=== PATIENT | female | born 1960 | race Caucasian/White ===

== ENCOUNTER 2022-02-22 17:07 | Emergency (ER) | payer MEDICARE, SELFPAY ==
[2022-02-22 17:07] VITALS: BP 182/90; PULSE 75; RESP 16; TEMP 36.8; O2SAT 95; BMI 33.5
--- NOTE | 2022-02-22 17:35 | RAD_ITS ---
STUDY: X-RAY - RIGHT SHOULDER REASON FOR EXAM: Female, 61 years old. fall TECHNIQUE: 4 view(s) of the shoulder. COMPARISON: None. FINDINGS: Narrowed glenohumeral articulation. Normal acromioclavicular joint. Normal acromion. Normal humeral head and visualized proximal humerus. The soft tissue structures are unremarkable. Normal visualized pulmonary apex. RAD/Shoulder min 2 Views IMPRESSION: Degenerative changes. No acute fracture or dislocation. Electronically Signed: Ajay Herbert MD at 19:25 EDT ,
--- NOTE | 2022-02-22 17:38 | EDS_ITS ---
HPI <PARTH Arellano - Last Filed: 02/22/22 19:28> History of Present Illness Chief Complaint: Fall Narrative Narrative: 61-year-old female with history of lupus, hypertension, lipidemia, diabetes, seizures presents to the emergency department after a fall getting out of vehicle. Patient states that she tripped on gravel, falling backwards hitting her head and neck. Patient is also complaining of left knee pain as well as bilateral shoulder pain. Per her , she did cry out however he did state that she did get dazed, however she remained alert. Patient complains of headache, neck pain as well as left knee pain, bilateral shoulder pain. Tiffany ent denies any other injury. Denies any loss of consciousness, denies any blood thinners. PFSH <PARTH Arellano - Last Filed: 02/22/22 19:28> [facility] Medical History (Updated 02/22/22 @ 19:22 by PARTH Arellano) HTN (hypertension) Lupus Metabolic syndrome Seizures Allergy/AdvReac Type Severity Reaction Status Date / Time iodine Allergy Anaphylaxis Verified 02/22/22 17:12 Calcium Channel Blocking AdvReac Other Verified 02/22/22 17:12 Agent Dilt prednisone AdvReac Other Verified 02/22/22 17:12 Surgical History (Updated 02/22/22 @ 17:13 by Sammie White) H/O right knee surgery H/O: hysterectomy History of discectomy Social History Smoking Status: Never smoker ROS <PARTH Arellano - Last Filed: 02/22/22 19:28> ROS ED ROS Narrative Constitutional: Negative for fever, chills, weight loss or gain, weakness Eyes: Negative for vision loss, vision change, double vision ENT: Negative for any hearing changes, ringing in the ears, dizziness, discharge, pain Nose: Negative for any congestion, runny nose, sinus pain, allergies Throat: Negative for any sore throat hoarseness, voice changes, Cardiovascular: Negative for any chest pain, tightness, palpitations, racing heartbeat Respiratory: Negative for any coughs, sputum production, coughing, hemoptysis, shortness of breath, shortness of breath on exertion, Gastrointestinal: Negative for any abdominal pain, nausea, vomiting, diarrhea, constipation, blood in stool, blood in vomit : Negative for any urinary frequency, incontinence, dysuria, retention, blood in urine Muscle skeletal: Negative for any muscle joint pain, stiffness, myalgias, arthralgias, back pain. Positive for neck pain, bilateral shoulder pains, left knee pain Neurological: Negative for any head injury, dizziness, syncope, numbness or tingling. Positive for headache Skin: Negative for any rashes, lumps, itching, abrasions, lacerations Psychiatric: Negative for any depression, anxiety, stress, suicidal ideation, homicidal ideation Hematologic: Negative for any easy bruising, excessive bruising, easy bleeding Allergies: Negative for any eczema, hives, rash EXAM <PARTH Arellano - Last Filed: 02/22/22 19:28> Physical Exam Const Vital Signs: 02/22/22 17:07 Temperature 98.2 F Temperature Source Oral Pulse Rate 75 Respiratory Rate 16 Blood Pressure 182/90 H Blood Pressure Mean 120 Pulse Ox 95 Oxygen Delivery Method Room Air Positive well nourished and well developed General Appearance ED: well developed HEENT HEENT Narrative: Pupils are equal round reactive to light, negative for any hematoma, septal hematoma. Eyes PERRL and EOMs intact bilaterally Neck no lymphadenopathy and supple Chest Wall inspection of chest normal Resp normal respiratory effort and clear to auscultation bilaterally Cardio regular rate and regular rhythm Back/Spine no CVA tenderness Extremity normal to inspection Neuro oriented x3 and CN's II-XII intact bilaterally Sensorium / Orientation: alert Psych mental status grossly normal Skin no rashes or lesions noted <Dr. Carla Henry MD - Last Filed: 02/22/22 19:24> Physical Exam Const Vital Signs: 02/22/22 17:07 Temperature 98.2 F Temperature Source Oral Pulse Rate 75 Respiratory Rate 16 Blood Pressure 182/90 H Blood Pressure Mean 120 Pulse Ox 95 Oxygen Delivery Method Room Air MDM <PARTH Arellano - Last Filed: 02/22/22 19:28> [facility] Narrative Medical decision making narrative: Patient presents to the emergency department after a mechanical fall injuring her head neck, bilateral shoulders and left knee. Patient appears well, patient appears nontoxic, patient alert and x4. Neurologically, the patient had a normal exam, negative for neurological focal deficit. Patient did receive x-rays of her shoulders, left knee, these were read by ER physician, no acute process was seen. Patient did receive a CT scan of the brain and cervical spine, this was negative for any acute intracranial activity, no cervical spine fracture. After the negative cervical spine CT, c- collar was removed. Patient is in pain management has multiple pain medicines at home as well as anti-inflammatories, patient refused to have anything here. Patient was ambulatory to the bathroom, patient feels stable going home and given return precautions. At this time patient is stable for discharge. Lab Data Attestation: I reviewed the patient's lab results. Radiography Diagnostic Testing: Clinical Impression(s) from Imaging Studies Brain CT 02/22/22 18:23 IMPRESSION: Minor periventricular white matter ischemic change. No evidence for acute intracranial hemorrhage Electronically Signed: Ajay Herbert MD at 18:50 EDT , Cervical Spine CT 02/22/22 18:23 IMPRESSION: No evidence for acute fracture or other significant bony pathology. Moderate spondylosis. Electronically Signed: Ajay Herbert MD at 18:53 EDT , Knee X-Ray 02/22/22 18:28 IMPRESSION: Mild degenerative change. No acute fracture or dislocation Electronically Signed: Ajay Herbert MD at 19:12 EDT , <Dr. Carla Henry MD - Last Filed: 02/22/22 19:24> MDM Radiography Diagnostic Testing: Clinical Impression(s) from Imaging Studies Brain CT 02/22/22 18:23 IMPRESSION: Minor periventricular white matter ischemic change. No evidence for acute intracranial hemorrhage Electronically Signed: Ajay Herbert MD at 18:50 EDT , Cervical Spine CT 02/22/22 18:23 IMPRESSION: No evidence for acute fracture or other significant bony pathology. Moderate spondylosis. Electronically Signed: Ajay Herbert MD at 18:53 EDT , Knee X-Ray 02/22/22 18:28 IMPRESSION: Mild degenerative change. No acute fracture or dislocation Electronically Signed: Ajay Herbert MD at 19:12 EDT , Treatment and Re-Evaluation Narrative: I have personally performed a face to face assessment of the patient and have reviewed the STEPHANIE Note. I performed a substantive portion of the visit including all aspects of the following. My palmer findings include: History is Patient presents after trip and fall. She lost her footing on some loose gravel and fell backwards striking her head and neck on some sheet rock. She denies loss of consciousness. She is complaining of pain to her shoulders, neck, head, knee. She is not on anticoagulants. Exam is Patient sitting upright in bed no acute distress. C-collar is in place. Head and neck examination was no obvious external sign of trauma. Mild C-spine tenderness. Heart is regular rate and rhythm. Lung sounds are clear. Abdomen is soft and nontender. Neuro exam reveals no focal deficits. Medical Decison Making CT scan of the head and neck obtained and unremarkable. X-rays of the bilateral shoulders and left knee per my interpretation reveal no acute injury or fracture. Patient declined anything for pain here and will take her chronic pain meds that she receives from pain management. Return instructions are pr ovided. Discharge Plan Triage Chief Complaint: Fall ED Midlevel Provider: Oscar Garcia ED Provider: Carla Henry Dx/Rx/DC Orders Clinical Impression: Fall, Closed head injury, Muscle strain, shoulder region, Knee strain Instructions: Treatment for Mild Traumatic ..., ED Knee Sprain, ED Shoulder Sprain Referrals: KASSY ALLEN [Other] Activity Restrictions/Additional Instructions: Please ensure that you ice, heat, perform gentle stretching. Please rest your eyes next 24 to 48 hours, please have your phone, rest. Return for any worsening symptoms. Print Language: Romansh Disposition Disposition: Home, Self Care
--- NOTE | 2022-02-22 17:40 | RAD_ITS ---
STUDY: X-RAY - LEFT SHOULDER REASON FOR EXAM: Female, 61 years old. FALL TECHNIQUE: 4 view(s) of the shoulder. COMPARISON: None. FINDINGS: Narrowed glenohumeral articulation. Spurring of the acromioclavicular joint. Normal acromion. Normal humeral head and visualized proximal humerus. The soft tissue structures are unremarkable. Normal visualized pulmonary apex. RAD/Shoulder min 2 Views IMPRESSION: Degenerative changes. No acute fracture or dislocation Electronically Signed: Ajay Herbert MD at 19:24 EDT ,
--- NOTE | 2022-02-22 18:23 | CT_ITS ---
STUDY: CT CERVICAL SPINE WITHOUT CONTRAST REASON FOR EXAM: Female, 61 years old. fall RADIATION DOSAGE (If Supplied By Facility): CTDIvol = ( 23.88 ) mGy, DLP = ( 511.36 ) mGycm TECHNIQUE: High resolution transaxial imaging was performed without contrast material. Sagittal and coronal images were reconstructed. Individualized dose optimization techniques were used for this CT. COMPARISON: None FINDINGS: Normal craniovertebral junction. Normal anterior atlantoaxial articulation. Normal odontoid process. Decreased cervical lordosis. Normal vertebral bodies and posterior osseous elements. C2-3: Normal endplates. Normal disc height and morphology. Normal central canal and intervertebral neuroforamina. C3-4: Normal endplates. Normal disc height and morphology. Normal central canal. Severe right neuroforaminal stenosis secondary to bony hypertrophy C4-5: Narrowed disc space and minor endplate spurring.. Normal central canal. Moderate left neuroforaminal stenosis secondary to bony hypertrophy C5-6: Narrowed disc space and endplate spurring. Normal central canal. Severe bilateral neuroforaminal stenosis secondary to bony hypertrophy. C6-7: Narrowed disc space and endplate spurring. Mild narrowing the central canal and impingement upon the cord. Severe bilateral neuroforaminal stenosis secondary to bony hypertrophy. C7-T1: Mild anterior endplate spurring.. Normal disc height and morphology. Normal central canal and intervertebral neuroforamina. Ossification of the nuchal ligament at C5 CT/Spine Cervical without Contras IMPRESSION: No evidence for acute fracture or other significant bony pathology. Moderate spondylosis. Electronically Signed: Ajay Herbert MD at 18:53 EDT ,
--- NOTE | 2022-02-22 18:23 | CT_ITS ---
STUDY: CT BRAIN WITHOUT CONTRAST REASON FOR EXAM: Female, 61 years old. fall RADIATION DOSAGE (If Supplied By Facility): CTDIvol = ( 44.99 ) mGy, DLP = ( 779.24 ) mGycm TECHNIQUE: Transaxial CT imaging of the brain was performed without administration of intravenous contrast material. Individualized dose optimization techniques were used for this CT. COMPARISON: No relevant priors. FINDINGS: Normal soft tissue structures. Normal calvarium. Normal size ventricles and extra-axial spaces for the patient''s age. Minor periventricular white matter ischemic changes.. Normal basal ganglia and thalami. Normal brainstem. Normal cerebellum. There is no intracranial hemorrhage. There are no findings of an acute ischemic infarction. Polypoid mucosal thickening in left maxillary sinus. CT/Brain/Head without Contrast IMPRESSION: Minor periventricular white matter ischemic change. No evidence for acute intracranial hemorrhage Electronically Signed: Ajay Herbert MD at 18:50 EDT ,
--- NOTE | 2022-02-22 18:28 | RAD_ITS ---
STUDY: X-RAY - LEFT KNEE REASON FOR EXAM: Female, 61 years old. fall TECHNIQUE: 4 view(s) of the knee. COMPARISON: None. FINDINGS: Normal visualized distal femur. Normal visualized proximal tibia and fibula. Normal proximal tibiofibular articulation. Narrowed medial femorotibial compartment. Normal lateral femorotibial compartment. Normal patellofemoral articulation. Surgical clips are seen within the anterior and posterior soft tissues. RAD/Knee 4 or More Views IMPRESSION: Mild degenerative change. No acute fracture or dislocation Electronically Signed: Ajay Herbert MD at 19:12 EDT ,
[2022-02-22 19:30] VITALS: PULSE 76; RESP 16; O2SAT 98
[2022-02-22 19:32] VITALS: BP 123/94; PULSE 94; RESP 15; O2SAT 98
== END 2022-02-22 19:33 | disposition home or self-care (01) ==
PROVIDERS: Emergency Provider Emergency Medicine; Visit Provider Emergency Medicine
DX: S09.90XA Unspecified injury of head, initial encounter (principal); E11.9 Type 2 diabetes mellitus without complications; S46.919A Strain of unspecified muscle, fascia and tendon at shoulder and upper arm level, unspecified arm, initial encounter; I10 Essential (primary) hypertension; W01.0XXA Fall on same level from slipping, tripping and stumbling without subsequent striking against object, initial encounter; S83.91XA Sprain of unspecified site of right knee, initial encounter; L93.2 Other local lupus erythematosus
CPT/HCPCS: 70450; 72125; 73030; 73564; 99283